=== PATIENT | female | born 1990 | race Caucasian/White ===

== ENCOUNTER 2018-05-29 19:14 | Emergency (ER) | payer OTHER ==
[2018-05-29] MEDS ORDERED: fentaNYL 100 MCG/2 ML INJ IVP ONE (20:33)
--- NOTE | 2018-05-29 20:34 | EDPHY ---
H & P Smoking Status: Never smoked Time Seen by Provider: 05/29/18 19:31 HPI/ROS: CLINICAL IMPRESSION: Congenital hip dysplasia, left hip pain ASSESSMENT/PLAN: This is a 27-year-old female with known congenital hip dysplasia status post numerous surgeries to the left hip by [facility] who presents to the emergency department with 3 days of atraumatic left hip pain exacerbated by movement and ambulation.. Patient has no clinical signs of septic arthritis, compartment syndrome, arterial thrombus, DVT. No radiologic evidence to suggest acute fracture. Patient continued to have pain with ambulation despite oral analgesics and IV fentanyl and therefore CT of the pelvis was obtained showing no fx and a moderate joint effusion. Labs obtained including CRP and sed rate and CBC all of which are normal. I discussed with [facility] [employer] who put a referral in for orthopedic follow-up. Patient was provided this follow-up phone number. Patient has follow-up tomorrow with her primary care through [facility] and I strongly recommended [facility] follow-up within 1 week. Pain medication prescribed. Warning signs return to ED outlined in discharge. Case discussed with Dr. Blackwell. DIFFERENTIAL DX: Differential diagnosis includes but not limited to fracture, dislocation, septic arthritis, inflammatory arthritis, infection ED COURSE: 10:10 p.m.: Patient reassessed, states she feels as though the pain medicine has done nothing. Walking feels as painful as it has for the last 3 days. She would like a CT scan. I requested a test 1st. She would also like an additional tablet of [place]. 10:55 p.m.: Discussed CT finding with Radiology. Joint space is widened compared to MRI in 2013. Patient has a moderate to large joint effusion with stranding, this could be a nonspecific finding. No identified fracture. Discussed with Dr. Blackwell. Will order labs to rule out leukocytosis or significant elevation in inflammatory markers. 11:59 p.m.. Discussed with [facility]. They have put in a referral to Orthopedics. Patient can call [phone] tomorrow for follow-up with Orthopedics. Keep her appointment with primary care tomorrow. Labs normal, normal CRP, sed rate and white count. CHIEF COMPLAINT: Atraumatic left hip pain HPI: This is a 27-year-old female with a past medical history of congenital left hip dysplasia, reportedly born with a dislocated hip and subsequently has had numerous surgeries at [facility], who presents to the emergency department with 3 days of atraumatic left hip pain. Patient reports she has had intermittent hip pain over the last years but it typically resolves in 24 hr. This pain has been persistent for 3 days. Pain is worsened with movement and walking. No reported trauma. No low back pain or abdominal pain. No urinary symptoms or abnormal discharge. No change in temperature or color to the leg and no obvious swelling. No reported fever or chills. Her local orthopedist is Dr. Romero, she has since required [facility] insurance and does not yet have a [facility] orthopedist PAST MEDICAL HISTORY: Congenital hip dysplasia Pertinent Past Surgical History: Numerous left hip surgeries Social History: Nonsmoker REVIEW OF SYSTEMS: All other systems negative Constitutional: No fever, no chills Musculoskeletal: No deformity, + joint pain Skin: No rashes, color change or open wounds. Neurological: No sensory loss or weakness. PHYSICAL EXAM: General Appearance: Alert, oriented, appropriate for age, cooperative, NAD, well hydrated, non-toxic appearing, VSS, no hypoxia. Neurological: Alert and oriented x 3, normal sensation and strength of extremities Skin: Warm, dry, no rashes, no nodules on palpation. Musculoskeletal: Unable to actively flex the left leg at the hip due to pain. Reproducible pain with internal and external rotation of the hip. No reproducible femoral or knee pain. Distal neurovascular exam in temperature intact. No evidence of compartment syndrome, arterial thrombus or DVT. The hip itself is not erythematous or warm to suggest septic arthritis MEDICAL DECISION MAKING: Patient was seen independently.Secondary supervising physician at time of evaluation was Dr Blackwell . Diagnosis: Acute on chronic left hip pain, congenital hip dysplasia. New, requires workup Summary: See assessment and plan for summary of ED visit Independent visualization of images, tracing, or specimens yes. Decision to obtain medical records or history from someone other than the patient patient's mother Review / Summarize previous medical records yes Discussed patient with another provider Dr. Blackwell, radiology, [facility] Patient Progress stable. (Reza De Leon) Constitutional: Initial Vital Signs Temperature (C) 36.7 C 05/29/18 19:24 Heart Rate 88 05/29/18 19:24 Respiratory Rate 18 05/29/18 19:24 Blood Pressure 131/80 H 05/29/18 19:24 O2 Sat (%) 97 05/29/18 19:24 O2 Delivery Mode Room Air Allergies/Adverse Reactions: No Known Allergies Allergy (Unverified 08/17/12 17:02) Home Medications: Medication Instructions Recorded Miscellaneous Medical Supply [NO 1 ea MISC AD 03/19/13 HOME MEDS] Hydrocodone/APAP 5/325 [[place] 1 - 2 tab PO Q4H PRN #10 tab 05/29/18 5/325 (*)] MDM/Departure - MDM Imaging: I viewed and interpreted images myself - MDM Medications Given: Discontinued Medications Hydrocodone Bitart/Acetaminophen ([place] 5/325) 1 tab PO EDNOW ONE Stop: 05/29/18 21:10 Last Admin: 05/29/18 21:24 Dose: 1 tab Hydrocodone Bitart/Acetaminophen ([place] 5/325mg Prepack#6) 1 btl TAKEHOME EDNOW ONE Stop: 05/29/18 22:05 Last Admin: 05/30/18 00:33 Dose: 1 btl Hydrocodone Bitart/Acetaminophen ([place] 5/325) 1 tab PO EDNOW ONE Stop: 05/29/18 22:12 Last Admin: 05/29/18 22:15 Dose: 1 tab Fentanyl (Sublimaze) 50 mcg IVP EDNOW ONE Stop: 05/29/18 20:34 Last Admin: 05/29/18 20:51 Dose: 50 mcg Hydromorphone HCl (Dilaudid) 0.5 mg IVP EDNOW ONE Stop: 05/29/18 23:56 Last Admin: 05/30/18 00:10 Dose: 0.5 mg Ketorolac Tromethamine (Toradol) 15 mg IVP EDNOW ONE Stop: 05/29/18 23:56 Last Admin: 05/30/18 00:10 Dose: 15 mg Ondansetron HCl (Zofran) 4 mg IVP EDNOW ONE Stop: 05/29/18 21:10 Last Admin: 05/29/18 21:12 Dose: 4 mg ED Course/Re-evaluation: I evaluated and participated in the management of the patient. I also evaluated the patient independently. My co-signature indicates that I have reviewed this chart and I agree with the findings and plan of care as documented. My personal H&P findings include: This is a 27-year-old female with history of a congenital hip dysplasia who has had multiple episodes of pain her left hip. She reports that typically if she rests the hip and tries to stay off of it, her pain improves within a few days. Today she has been having pain for the last 4 days. It does sound like she has been relatively active and perhaps has not been able to rest it as she typically would. She is a [facility] patient and is followed at [facility]. She denies any fevers, the chills, recent illness, rash, nausea, vomiting, lightheadedness, dizziness, or other systemic symptoms. States the character of the pain is similar to her prior multiple episodes of discomfort, it is just more severe. On examination the patient looks well. She does have pain with flexion as well as internal and external rotation at the hip with her knee flexed. She is ambulatory but needs to use a walker for support. Evaluation in the emergency department in included x-ray which was negative for any acute findings. Patient was then treated with pain medications but did not feel like she was improving significantly. She had a CT scan of the pelvis performed demonstrating no fractures, although there is an effusion at the hip joint. Because of this patient had screening laboratory tests performed. [place] white count is normal. She has a normal sed rate and normal ESR. Held a long discussion with the patient and her mother. The understand that there is fluid in the hip joint. I do not believe patient has a septic hip. It may need to be tapped, however, I do not feel that the patient needs to be tapped this evening. We discussed with [facility] the results of the CT scan and the patient's labs. She will be seen tomorrow by her primary care physician who could arrange a tap of the hip joint if the patient is worsening or develops other symptoms. (Darline Blackwell) - Depart Disposition: Home, Routine, Self-Care Clinical Impression: Congenital dysplasia of left hip, Left hip pain Condition: Good Instructions: Hydrocodone/Acetaminophen (By mouth), Hip Pain (ED) Additional Instructions: DISCHARGE INSTRUCTIONS FROM YOUR DOCTOR Thank you for visiting our emergency department today. Please keep in mind that discharge from the emergency department does not mean that there is nothing wrong - it simply means that we have not identified an emergency condition that requires further evaluation or treatment in the hospital. You should always plan to follow up with primary care for re-evaluation of your condition in the next 2-3 days. If you have been referred to a specialist, please call as soon as possible (today or tomorrow) to schedule your follow up appointment at the appropriate time. The x-rays of your hip show congenital hip dysplasia with no obvious acute fracture. We recommend that you follow up with your primary orthopedic provider. Please ask your [facility] primary care provider tomorrow to help arrange a follow-up. Pain medication was prescribed to use as needed. Please avoid activities that exacerbate your hip pain. We did not identify a dangerous cause for hip pain tonight. Please return to the emergency department for worsening pain, redness or warmth to the hip, fever or chills, abdominal pain, vomiting, loss of sensation to the leg, color or temperature change to the leg, or any other concerns. People present with illnesses and injuries in different ways, and it is always possible that we have missed something. You may always return for re-evaluation if symptoms worsen or if they are not improving or if you develop new/different symptoms. Again, thank you for choosing our emergency department. We hope that you feel better. Stand Alone Forms: Work Excuse Prescriptions: Hydrocodone/APAP 5/325 [[place] 5/325 (*)] 1 - 2 tab PO Q4H PRN #10 tab PRN Reason: Pain, Moderate Referrals: NONE *PRIMARY CARE P,. [Unknown] - As per Instructions [facility] ,. [Edm Groups for Call Sched] - As per Instructions
[2018-05-29] MEDS ORDERED: ONDANSETRON 4 MG/2 ML VIAL ONE (21:09)
[2018-05-29] MEDS ORDERED: ONDANSETRON 4 MG/2 ML VIAL IVP ONE (21:09)
[2018-05-29] MEDS ORDERED: HYDROCODONE/APAP 5/325 TAB PO ONE ×2 (21:09→22:11)
[2018-05-29] MEDS ORDERED: HYDROCODONE/APAP 5/325 TAB ONE (21:09)
[2018-05-29] MEDS ORDERED: HYDROCOD/APAP 5/325 PREPACK#6 BTL TAKEHOME ONE (22:04)
[2018-05-29 23:19] LABS: PLATELET COUNT 198 10^3/uL (150-400)
[2018-05-29] MEDS ORDERED: HYDROmorphONE/DILAUDID 2 MG/ML INJ IVP ONE (23:55)
[2018-05-29] MEDS ORDERED: KETOROLAC 15 MG/1 ML SDV IVP ONE (23:55)
[2018-05-30] MEDS ORDERED: HYDROCOD/APAP 5/325 PREPACK#6 BTL TAKEHOME ONE (00:30)
[2018-05-30 00:35] VITALS: BP 121/97
== END 2018-05-30 00:48 | disposition home or self-care (01) ==
DX: M25.552 Pain in left hip (principal); Q65.89 Other specified congenital deformities of hip
CPT/HCPCS: 96374; J1170; J1885; J2405; J3010

== ENCOUNTER 2018-10-04 18:01 | Emergency (ER) | payer OTHER ==
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
[2018-10-04 19:52] VITALS: BP 114/72
== END 2018-10-04 19:53 | disposition home or self-care (01) ==
DX: S16.1XXA Strain of muscle, fascia and tendon at neck level, initial encounter (principal); F07.81 Postconcussional syndrome; V49.40XA Driver injured in collision with unspecified motor vehicles in traffic accident, initial encounter; Y92.410 Unspecified street and highway as the place of occurrence of the external cause; Y93.9 Activity, unspecified; Y99.9 Unspecified external cause status